=== PATIENT | male | born 1990 | race African-American/Black ===

== ENCOUNTER 2019-11-17 19:59 | Emergency (ER) | payer SELFPAY ==
[2019-11-17 21:53] LABS: Absolute Lymphocytes (CBC) 1.5 K/uL (0.7-4.9); Basophils % 0.3 % (0-1.3); Hematocrit 42.3 % (39.6-49.0); Lymphocytes % 17.4 % (15.3-44.8); RBC Red Blood Cell Count 4.52 M/uL (4.33-5.43)
[2019-11-17 22:07] LABS: BUN Blood Urea Nitrogen 14 mg/dL (7-18); Bicarbonate 29 mmol/L (21-32); Glucose Level 89 mg/dL (74-106); Potassium 3.7 mmol/L (3.5-5.1); Sodium Level 142 mmol/L (136-145)
[2019-11-17 23:02] LABS: Blood Morphology Comment NOT SEEN (NOT SEEN); Platelet Estimate ADEQ
[2019-11-17 23:39] LABS: Barbiturates NEGATIVE (NEGATIVE); Benzodiazepines NEGATIVE (NEGATIVE); Cocaine NEGATIVE (NEGATIVE); METHAMPHETAM NEGATIVE (NEGATIVE); Methadone NEGATIVE (NEGATIVE); Opiates NEGATIVE (NEGATIVE); Phencyclidine NEGATIVE (NEGATIVE); THC Cannibis NEGATIVE (NEGATIVE)
[2019-11-18] MEDS ORDERED: ACETAMINOPHEN 500 MG TAB ONE (00:08)
[2019-11-18 00:18] LABS: Urine Blood 1+ (NEG); Urine Glucose NEGATIVE (NEG); Urine Protein 1+ (NEG); Urine Specific Gravity >1.030 (1.005-1.030)
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
--- NOTE | 2019-11-18 02:54 | EDPHYS ---
Physician Documentation [facility] Name: Preet Blackwell Age: 29 yrs Sex: Male : 1990 Arrival Date: 11/17/2019 Time: 20:01 Bed 15 Private MD: ED Physician Mello Evans HPI: 11/16 22:01 This 29 yrs old Black Male presents to ER via Law Enforcement with complaints of mh7 Suicidal Ideation. 22:01 The patient presents to the emergency department with depression, over a relationship, mh7 suicide ideation, but the patient has no formulated plan. Onset: The symptoms/episode began/occurred today. Past psychiatric history: Prior diagnosis: depression, Psychiatric medications include: none, Primary psychiatric physician: the patient does not have a primary psychiatric physician, the patient has not had a prior suicide gesture, the patient does not have a previous inpatient psychiatric history, the patient's last psychiatric treatment was 3 year(s) ago. Associated signs and symptoms: Pertinent negatives: abdominal pain, anxiety, chest pain, chills, delusions, fever, hallucinations, headache, homicidal ideation, nausea, night sweats, palpitations, paranoia, shortness of breath, substance abuse, tremor, vomiting. Severity of symptoms: At their worst the symptoms were moderate today, in the emergency department the symptoms have improved markedly. Historical: - Allergies: 20:40 No Known Allergies; vc - Home Meds: 20:40 None [Active]; vc - PMHx: 20:40 Anxiety; Panic Attacks; Depression; vc - PSHx: 20:40 Hernia repair; testicular sx; vc - Immunization history:: Adult Immunizations up to date. - Social history:: Smoking status: Patient denies any tobacco usage or history of. ROS: 22:01 Constitutional: Negative for fever, chills, and weight loss, Eyes: Negative for injury, mh7 pain, redness, and discharge, ENT: Negative for injury, pain, and discharge, Neck: Negative for injury, pain, and swelling, Cardiovascular: Negative for chest pain, palpitations, and edema, Respiratory: Negative for shortness of breath, cough, wheezing, and pleuritic chest pain, Abdomen/GI: Negative for abdominal pain, nausea, vomiting, diarrhea, and constipation, Back: Negative for injury and pain, : Negative for injury, bleeding, discharge, and swelling, MS/Extremity: Negative for injury and deformity, Skin: Negative for injury, rash, and discoloration, Neuro: Negative for headache, weakness, numbness, tingling, and seizure, Allergy/Immunology: Negative for hives, rash, and allergies, Endocrine: Negative for neck swelling, polydipsia, polyuria, polyphagia, and marked weight changes, Hematologic/Lymphatic: Negative for swollen nodes, abnormal bleeding, and unusual bruising. Exam: 22:01 Constitutional: This is a well developed, well nourished patient who is awake, alert, mh7 and in no acute distress. Head/Face: Normocephalic, atraumatic. Eyes: Pupils equal round and reactive to light, extra-ocular motions intact. Lids and lashes normal. Conjunctiva and sclera are non-icteric and not injected. Cornea within normal limits. Periorbital areas with no swelling, redness, or edema. Neck: Trachea midline, no thyromegaly or masses palpated, and no cervical lymphadenopathy. Supple, full range of motion without nuchal rigidity, or vertebral point tenderness. No Meningismus. Chest/axilla: Normal chest wall appearance and motion. Nontender with no deformity. No lesions are appreciated. Cardiovascular: Regular rate and rhythm with a normal S1 and S2. No gallops, murmurs, or rubs. Normal PMI, no JVD. No pulse deficits. Respiratory: Lungs have equal breath sounds bilaterally, clear to auscultation and percussion. No rales, rhonchi or wheezes noted. No increased work of breathing, no retractions or nasal flaring. Abdomen/GI: Soft, non-tender, with normal bowel sounds. No distension or tympany. No guarding or rebound. No evidence of tenderness throughout. Back: No spinal tenderness. No costovertebral tenderness. Full range of motion. Skin: Warm, dry with normal turgor. Normal color with no rashes, no lesions, and no evidence of cellulitis. MS/ Extremity: Pulses equal, no cyanosis. Neurovascular intact. Full, normal range of motion. Neuro: Awake and alert, GCS 15, oriented to person, place, time, and situation. Cranial nerves II-XII grossly intact. Motor strength 5/5 in all extremities. Sensory grossly intact. Cerebellar exam normal. Normal gait. 22:01 Psych: Behavior/mood is pleasant, cooperative, depressed, Affect is calm, Oriented to person, place, time, Patient has no thoughts/intents to harm self or others. Judgement / Insight is normal. Memory is normal. Delusions/hallucinations are not present. Vital Signs: 20:29 BP 135 / 89; Pulse 89; Resp 17; Temp 98.8; Pulse Ox 99% on R/A; Weight 83.91 kg; Height vc 5 ft. 8 in. (172.72 cm); 11/17 02:52 BP 140 / 91; Pulse 59; Resp 18; Temp 98.3(TE); Pulse Ox 100% on R/A; oe 11/16 20:29 Body Mass Index 28.13 (83.91 kg, 172.72 cm) vc MDM: 11/16 21:20 Patient medically screened. [facility] 11/17 02:50 Differential diagnosis: drug withdrawal. depression, Substance Abuse. Data reviewed: [facility] vital signs, nurses notes, lab test result(s), CBC, drug level(s), electrolytes, urinalysis, urine drug screen, radiologic studies, CT scan. Data interpreted: Pulse oximetry: on room air is 99 %. Interpretation: normal. Counseling: I had a detailed discussion with the patient and/or guardian regarding: the historical points, exam findings, and any diagnostic results supporting the discharge/admit diagnosis, the presence of at least one elevated blood pressure reading (>120/80) during this emergency department visit, lab results, radiology results, the need for outpatient follow up, a psychiatrist. Response to treatment: the patient's symptoms have resolved after treatment, the patient's blood pressure is in an acceptable range, mental status has returned to baseline, the patient no longer shows bradycardia, the patient is not short of breath, the patient is not tachycardic, the patient's pain is gone, the patient's temperature has normalized. 03:07 ED course: Well appearing, NAD, VSS, no focal neurological deficits. Awake, alert, and [facility] oriented x 3. Psychiatric service from [facility] evaluated patient and recommended outpatient care. He is not suicidal or homicidal. He will follow with psychiatry but agreed to return to the ED if worsening of symptoms or other urgent concerns.. 11/16 21:30 Order name: CHANTALE; Complete Time: 00:45 vc 06/30 21:30 Order name: CBC with Manual Differential; Complete Time: 00:45 vc 11/16 21:30 Order name: Basic Metabolic Panel; Complete Time: 00:45 vc 11/16 22:56 Order name: ETOH Level; Complete Time: 00:45 vc 11/16 23:01 Order name: Acetaminophen Level; Complete Time: 00:45 EDMS 06 21:47 Order name: Head Brain Wo Cont CT vc 11/16 23:16 Order name: Urine Dipstick--Ancillary (enter results); Complete Time: 00:45 mw2 11/17 00:46 Order name: Salicylate; Complete Time: 02:45 7 Administered Medications: 00:30 Drug: Tylenol 1000 mg Route: PO; vc 01:06 Follow up: Response: No adverse reaction vc Disposition: 11/18/19 02:53 Discharged to Home. Impression: Depression. - Condition is Stable. - Discharge Instructions: Major Depressive Disorder, [id number]. - Medication Reconciliation Form, Thank You Letter, Antibiotic Education, Prescription Opioid Use form. - Follow up: Private Physician; When: 1 - 2 days; Reason: Worsening of condition, Recheck today's complaints, Re-evaluation by your physician. Follow up: Clayton Connors MD; When: 1 - 2 days; Reason: Worsening of condition, Recheck today's complaints. - Problem is an acute exacerbation. - Symptoms have improved. Signatures: Dispatcher [employer] EDDC Magy Valdemar Lana Georges RN RN Mello Evans MD MD 7 Corrections: (The following items were deleted from the chart) 11/16 21:49 21:47 Head Brain W/ Wo Con+CT.RAD.BRZ ordered. EDDC EDMS 23:00 22:56 ACETAMINOPHEN+C.LAB.BRZ ordered. EDDC EDMS 11/17 03:02 02:53 11/18/2019 02:53 Discharged to Home. Impression: Depression. Condition is Stable. Forms are Medication Reconciliation Form, Thank You Letter, Antibiotic Education, Prescription Opioid Use. Follow up: Private Physician; When: 1 - 2 days; Reason: Worsening of condition, Recheck today's complaints, Re-evaluation by your physician. Follow up: Clayton Connors; When: 1 - 2 days; Reason: Worsening of condition, Recheck today's complaints. Problem is an acute exacerbation. Symptoms have improved. mh7
[2019-11-18 03:15] VITALS: BP 140/91; TEMP 98.3; O2SAT 100
--- NOTE | 2019-11-18 09:41 | RAD REPORT ---
EXAM DESCRIPTION: Head Brain Wo Cont CLINICAL HISTORY: 29 years Male DIZZINESS COMPARISON: None TECHNIQUE: Images were obtained in axial, sagittal, and coronal planes. This exam was performed according to our departmental dose-optimization program which includes use of Automated Exposure Control, adjustment of the mA and/or kV according to patient size and/or use o f iterative reconstruction technique. FINDINGS: Ventricular system appears normal. No abnormal areas of increased or decreased attenuation are seen involving the brain parenchyma. No e xtra-axial fluid collections noted. No evidence for skull fracture. Symmetric aeration mastoid air cells bilaterally. Unremarkable parana mercy sinuses. IMPRESSION: No acute intracranial abnormality. No evidence for hemorrhage, mass lesion, or large acu te infarction. Electronically signed by: Kelly Mcmanus MD 11/17/2019 10:20 PM CDT Due to temporary technical issues with the PACS/Fluency reporting system, reports are being signed by the in house radiologist without review as a courtesy to ensure prompt reporting. The interpreting r adiologist is fully responsible for the content of the report.
== END 2019-11-18 03:02 | disposition home or self-care (01) ==
LOC: ER 19:59
DX: F32.9 Major depressive disorder, single episode, unspecified (principal)
CPT/HCPCS: 36415; 70450; 80048; 80307; 80320; 80329; 81003; 85025; 99285